=== PATIENT | female | born 1990 | race African-American/Black ===

== ENCOUNTER 2018-03-07 23:13 | Emergency (ER) | payer MEDICAID ==
[~2018-03-07] VITALS: Ht 157.5 cm; Wt 145.0 kg
[2018-03-08] MEDS ORDERED: IBUPROFEN 600MG TABLET PO ONE (00:15)
[2018-03-08 04:34] VITALS: BP 123/65
== END 2018-03-08 04:37 | disposition home or self-care (01) ==
LOC: ER 23:13
DX: S09.8XXA Other specified injuries of head, initial encounter (principal); S46.811A Strain of other muscles, fascia and tendons at shoulder and upper arm level, right arm, initial encounter; W22.8XXA Striking against or struck by other objects, initial encounter; Y93.89 Activity, other specified; Y92.89 Other specified places as the place of occurrence of the external cause; Y99.8 Other external cause status; Z90.49 Acquired absence of other specified parts of digestive tract
CPT/HCPCS: 70100; 73030; 81025; 99283; Z7610